=== PATIENT | female | born 1980 | race African-American/Black ===

== ENCOUNTER → 2017-09-14 | Outpatient (CLI) | payer OTHER ==
--- NOTE | 2017-09-14 15:07 | REP ---
Clinical: Rule out TB . Comparison: None . Technique: PA and lateral. Findings: The mediastinum and cardiac silhouette are normal. The lung shaikh are clear and without acute consolidation, effusion, or pneumothorax. The skeletal structures are intact and normal. Impression: 1. No acute cardiopulmonary process. Signed by Salas Beck MD 09/14/2017 02:59 P
== END ==
LOC: M WUC 14:41
PROVIDERS: ATTEND Family Medicine Adult Medicine
DX: Z11.1 Encounter for screening for respiratory tuberculosis (principal)

== ENCOUNTER → 2017-10-14 | Outpatient (REF) | payer OTHER ==
[2017-10-14 11:30] LABS: ESTRADIOL 26.8 PG/ML; FOLLICLE STIMULATING HORMONE 7.9 mIU/mL; HCG, SERUM QUANTITATIVE < 1.0 MIU/ML; LUTEINIZING HORMONE 8.6 mIU/mL; PROGESTERONE 0.4 NG/ML
== END ==
LOC: M LABDRAW1 10:03
PROVIDERS: ATTEND Obstetrics & Gynecology Reproductive Endocrinology
DX: E28.9 Ovarian dysfunction, unspecified (principal)

== ENCOUNTER → 2017-10-26 | Outpatient (REF) | payer OTHER ==
[2017-10-26 12:03] LABS: PROGESTERONE 0.4 NG/ML
[2017-10-26 12:03] LABS: LUTEINIZING HORMONE 11.5 mIU/mL
[2017-10-26 12:04] LABS: ESTRADIOL 67.2 PG/ML
== END ==
LOC: M LABDRAW1 10:12
DX: E28.9 Ovarian dysfunction, unspecified (principal)

== ENCOUNTER → 2017-11-01 | Outpatient (REF) | payer OTHER, SELFPAY ==
[2017-11-01 10:55] LABS: ESTRADIOL 73.7 PG/ML
== END ==
LOC: M LABDRAW1 10:24
DX: N97.9 Female infertility, unspecified (principal)

== ENCOUNTER → 2017-11-04 | Outpatient (REF) | payer OTHER ==
[2017-11-04 12:01] LABS: PROGESTERONE 7.4 NG/ML
[2017-11-04 12:02] LABS: ESTRADIOL 61.7 PG/ML
== END ==
LOC: M LABDRAW1 09:27
DX: E28.9 Ovarian dysfunction, unspecified (principal)

== ENCOUNTER → 2017-11-16 | Outpatient (REF) | payer OTHER ==
[2017-11-16 11:37] LABS: HCG, SERUM QUANTITATIVE < 1.0 MIU/ML
[2017-11-16 11:44] LABS: PROGESTERONE 1.8 NG/ML
== END ==
LOC: M LABDRAW1 10:50
DX: Z31.49 Encounter for other procreative investigation and testing (principal)